=== PATIENT | male | born 1995 | race Caucasian/White ===

== ENCOUNTER 2017-10-03 19:38 | Emergency (ER) | payer OTHER ==
[~2017-10-03] VITALS: Ht 193 cm; Wt 151.9 kg
[~2017-10-03 19:38] MED LIST: AZELASTINE137 MCG/0. BOTH NARES; BUSPIRONE HCL5 MG PO; CLARITIN-D 21 TABLET PO; MEDROL DOSEPAK4 MG PO; NASONEX17 GM NS; PROVENTIL HFA6.7 GM IH; SERTRALINE HCL100 MG PO
[2017-10-03 23:41] VITALS: BP 137/89
== END 2017-10-03 23:42 | disposition home or self-care (01) ==
LOC: EME 19:38
DX: S06.0X0A Concussion without loss of consciousness, initial encounter (principal); W19.XXXA Unspecified fall, initial encounter
CPT/HCPCS: 70450; 99281; 99282; J1885